=== PATIENT | male | born 2000 | race African-American/Black ===

== ENCOUNTER 2023-12-23 10:39 | Emergency (ER) | payer OTHER ==
[~2023-12-23] VITALS: Ht 188 cm; Wt 82.0 kg
[~2023-12-23 10:39] MED LIST: DOCU-138 MT; HYDR-4001 MT; LEVO750T68 MT
[2023-12-23 10:49] VITALS: TEMP 98; O2SAT 100
[2023-12-23 11:12] LABS: HEMATOCRIT. 46.1 % (42.0-52.0); HEMOGLOBIN. 15.2 g/dL (14.0-18.0); MEAN CORPUSCULAR HEMOGLOBIN 31.2 pg (28.0-32.0); MEAN CORPUSCULAR VOLUME 94.4 fL (80.0-94.0); MEAN PLATELET VOLUME 9.8 fl (7.4-10.4); PLATELET 188 x1000/uL (130-400); RED BLOOD CELL COUNT 4.88 mill/uL (4.7-6.1); RED CELL DISTRIBUTION WIDTH 13.2 % (11.6-14.6); WHITE BLOOD COUNT 6.1 x1000/uL (4.5-11.0)
[2023-12-23 11:14] LABS: CHLORIDE 103 mEq/L (98-107); DIFFERENTIAL COMMENT 1; SODIUM 137 mEq/L (136-145)
[2023-12-23 11:15] LABS: CARBON DIOXIDE 28 mEq/L (21-32)
[2023-12-23] MEDS: ONDANSETRON 4MG ODT PO ONE (11:15)
[2023-12-23] MEDS: KETOROLAC 30MG/ML VIAL IM ONE (11:15)
[2023-12-23 11:16] LABS: CALCIUM 9.3 mg/dL (8.7-10.4)
[2023-12-23 11:20] LABS: CREATININE 0.9 mg/dL (0.6-1.3); GLUCOSE 95 mg/dL (70-105)
[2023-12-23 11:21] LABS: UREA NITROGEN BLOOD 6 mg/dL (9-23)
[2023-12-23 11:44] LABS: HCG SCREEN NEGATIVE
[2023-12-23 12:08] LABS: ALANINE AMINOTRANSFERASE 14 IU/L (10-49); ALBUMIN 4.6 g/dL (3.2-4.8); ASPARTATE AMINOTRANSFERASE 20 IU/L (<34); BILIRUBIN DIRECT 0.2 mg/dL (<=3.0); BILIRUBIN TOTAL 0.8 mg/dL (0.1-1.0); PROTEIN TOTAL 7.5 g/dL (6.0-8.3)
[2023-12-23 12:20] VITALS: BP 144/84; PULSE 64; RESP 14; O2SAT 100
[2023-12-23 12:37] LABS: CLARITY URINE CLEAR (CLEAR); COLOR URINE YELLOW (YELLOW); GLUCOSE URINE NEGATIVE (NEGATIVE); KETONES URINE NEGATIVE (NEGATIVE); LEUKOCYTE ESTERASE URINE NEGATIVE (NEGATIVE); NITRITE URINE NEGATIVE (NEGATIVE); OCCULT BLOOD URINE NEGATIVE (NEGATIVE); PROTEIN URINE NEGATIVE (NEGATIVE); SPECIFIC GRAVITY URINE 1.017 (1.005-1.030); UROBILINOGEN URINE 0.2 E.U./dL (0.2-1.0)
[2023-12-23 16:38] LABS: PLATELET ESTIMATE NORMAL
== END 2023-12-23 14:37 | disposition home or self-care (01) ==
LOC: ER 10:39
DX: G89.18 Other acute postprocedural pain (principal); R10.84 Generalized abdominal pain; F12.10 Cannabis abuse, uncomplicated; I10 Essential (primary) hypertension; Z90.49 Acquired absence of other specified parts of digestive tract
CPT/HCPCS: 80076; 80048; 81003; 84703; 85025; 36415; 74176; 96372; 99285; Q0162; J1885

== ENCOUNTER 2024-03-26 23:57 | Emergency (ER) | payer OTHER ==
[~2024-03-26] VITALS: Ht 188 cm; Wt 82.0 kg
[2024-03-26 23:59] VITALS: O2SAT 100
[2024-03-27] MEDS: TETANUS, DIPHTHERIA, PERTUSSIS VAC/PF 0.5ML (>10YR OLD) IM ONE (01:16)
[2024-03-27] MEDS: BACITRACIN ZINC OINT UDPKT TOP ONE (01:16)
[2024-03-27] MEDS: LIDOCAINE HCL/PF 1% 10 MG/ML 5ML VIAL INFIL ONE (01:16)
[2024-03-27] MEDS ORDERED: AMOX1TAB16 MT (04:26)
[2024-03-27] MEDS ORDERED: HYDR-4001 MT (04:26)
[2024-03-27 08:27] VITALS: BP 122/71; PULSE 84; RESP 16; TEMP 36.94740; O2SAT 99
== END 2024-03-27 08:28 | disposition home or self-care (01) ==
LOC: ER 23:57
DX: S01.511A Laceration without foreign body of lip, initial encounter (principal); R51.9 Headache, unspecified; I10 Essential (primary) hypertension; Z90.49 Acquired absence of other specified parts of digestive tract; Y08.89XA Assault by other specified means, initial encounter; Y04.0XXA Assault by unarmed brawl or fight, initial encounter; Y92.89 Other specified places as the place of occurrence of the external cause; Y99.8 Other external cause status
CPT/HCPCS: 12014; 99285; 70486; 90715; 90471; J3490; Z7610

== ENCOUNTER 2024-07-27 19:34 | Emergency (ER) | payer OTHER ==
[~2024-07-27] VITALS: Ht 175.3 cm; Wt 75.0 kg
[~2024-07-27 19:34] MED LIST changes: +AMOX1TAB16 MT
[2024-07-27 19:49] VITALS: BP 104/63; PULSE 66; RESP 18; TEMP 36.6; O2SAT 99
== END 2024-07-28 01:27 | disposition left against medical advice (07) ==
LOC: ER 19:34
DX: R53.1 Weakness (principal); Z53.21 Procedure and treatment not carried out due to patient leaving prior to being seen by health care provider

== ENCOUNTER 2024-09-13 02:13 | Emergency (ER) | payer OTHER ==
[~2024-09-13] VITALS: Ht 182.9 cm; Wt 86.0 kg
[2024-09-13 02:15] VITALS: O2SAT 100
[2024-09-13 03:11] LABS: INR 1.1; PROTHROMBIN TIME 11.5 sec (9.6-11.0)
[2024-09-13 03:12] LABS: CHLORIDE 103 mEq/L (98-107); POTASSIUM 3.8 mEq/L (3.5-5.1); SODIUM 138 mEq/L (136-145)
[2024-09-13 03:13] LABS: CALCIUM 9.4 mg/dL (8.7-10.4); CARBON DIOXIDE 26 mEq/L (21-32)
[2024-09-13 03:18] LABS: CREATININE 0.9 mg/dL (0.6-1.3); GLUCOSE 98 mg/dL (70-105); UREA NITROGEN BLOOD 9 mg/dL (9-23)
[2024-09-13 03:19] LABS: ETHANOL BLOOD < 10 mg/dL (<10)
[2024-09-13 03:20] LABS: ALANINE AMINOTRANSFERASE 11 IU/L (10-49); ASPARTATE AMINOTRANSFERASE 15 IU/L (<34); BILIRUBIN DIRECT 0.2 mg/dL (<=3.0); BILIRUBIN TOTAL 0.6 mg/dL (0.1-1.0)
[2024-09-13 03:23] LABS: TROPONIN I HIGH SENSITIVITY < 4 ng/L (3.0-53)
[2024-09-13 03:28] LABS: BASOPHILS % 0.6 % (0.0-2.0); EOSINOPHILS % 1.7 % (0.0-5.0); HEMATOCRIT. 49.6 % (42.0-52.0); HEMOGLOBIN. 16.4 g/dL (14.0-18.0); LYMPHOCYTES % 24.7 % (20.0-50.0); MEAN CORPUSCULAR HEMOGLOBIN 30.4 pg (28.0-32.0); MEAN CORPUSCULAR HGB CONC 33.1 g/dL (31.0-37.0); MEAN CORPUSCULAR VOLUME 91.7 fL (80.0-94.0); MEAN PLATELET VOLUME 10.3 fl (7.4-10.4); MONOCYTES % 7.1 % (2.0-8.0); NEUTROPHILS % 65.9 % (40.0-76.0); PLATELET 171 x1000/uL (130-400); RED BLOOD CELL COUNT 5.41 mill/uL (4.7-6.1); RED CELL DISTRIBUTION WIDTH 13.5 % (11.6-14.6); WHITE BLOOD COUNT 5.6 x1000/uL (4.5-11.0)
[2024-09-13] MEDS: ONDANSETRON HCL 4MG/2ML INJ IV STA (03:38)
[2024-09-13] MEDS: KETOROLAC 30MG/ML VIAL IV STA (03:38)
[2024-09-13] MEDS: SODIUM CHLORIDE 0.9% 1,000 ML IV ONE (03:38)
[2024-09-13] MEDS ORDERED: IBUP-2029 MT (04:55)
[2024-09-13] MEDS ORDERED: ONDA4TAB50 MT (04:55)
[2024-09-13 05:14] VITALS: BP 120/75; PULSE 68; RESP 15; TEMP 36.4; O2SAT 99
== END 2024-09-13 05:32 | disposition home or self-care (01) ==
LOC: ER 02:13
DX: R10.30 Lower abdominal pain, unspecified (principal); F12.10 Cannabis abuse, uncomplicated; I10 Essential (primary) hypertension; Z00.00 Encounter for general adult medical examination without abnormal findings; Z79.899 Other long term (current) drug therapy; Z90.49 Acquired absence of other specified parts of digestive tract
CPT/HCPCS: 80076; 80048; 80320; 83690; 85025; 85610; 84484; 36415; 74176; 93005; 96361; 96374; 96375; 99285; J1885; J2405; J7030; Z7610 ×3; G0480

== ENCOUNTER 2025-02-18 06:23 | Emergency (ER) | payer OTHER ==
[~2025-02-18] VITALS: Ht 177.8 cm; Wt 73.0 kg
[~2025-02-18 06:23] MED LIST changes: +IBUP-1455 MT; +ONDA4TAB50 MT
[2025-02-18 06:26] VITALS: O2SAT 97
[2025-02-18 07:35] LABS: BASOPHILS % 0.5 % (0.0-2.0); EOSINOPHILS % 0.3 % (0.0-5.0); HEMATOCRIT. 46.4 % (42.0-52.0); HEMOGLOBIN. 15.4 g/dL (14.0-18.0); LYMPHOCYTES % 23.5 % (20.0-50.0); MEAN PLATELET VOLUME 8.3 fl (7.4-10.4); MONOCYTES % 13.8 % (2.0-8.0); NEUTROPHILS % 61.9 % (40.0-76.0); PLATELET 185 x1000/uL (130-400); RED BLOOD CELL COUNT 5.03 mill/uL (4.7-6.1); RED CELL DISTRIBUTION WIDTH 13.7 % (11.6-14.6)
[2025-02-18 07:56] LABS: CREATININE 0.9 mg/dL (0.6-1.3); UREA NITROGEN BLOOD 8 mg/dL (9-23)
[2025-02-18] MEDS: BACITRACIN ZINC OINT UDPKT TOP ONE (08:00)
[2025-02-18 10:25] LABS: *AMPHETAMINES SCREEN URINE PRESUMPTIVE POSITIVE (NEGATIVE); *BARBITURATES SCREEN URINE NEGATIVE (NEGATIVE); *BENZODIAZEPINES SCREEN URINE NEGATIVE (NEGATIVE); *COCAINE SCREEN URINE NEGATIVE (NEGATIVE); CANNABINOID URINE SCREEN PRESUMPTIVE POSITIVE (NEGATIVE); ECSTASY MDMA SCREEN URINE CONF.TEST INDICATED (NEGATIVE); METHADONE URINE SCREEN NEGATIVE (NEGATIVE); OPIATES URINE SCREEN NEGATIVE (NEGATIVE); PHENCYCLIDINE URINE SCREEN PRESUMTIVE POSITIVE (NEGATIVE)
[2025-02-18] MEDS: OLANZAPINE 10 MG/VIAL IM ONE (12:30)
[2025-02-18] MEDS: LORAZEPAM 2MG/ML UD SYRINGE IM NR (12:44)
[2025-02-18 20:40] VITALS: BP 121/72; PULSE 62; RESP 18; TEMP 36.8; O2SAT 100
[2025-02-18] MEDS ORDERED: TRAZODONE HCL 50MG TABLET PO SCH (21:00)
[2025-02-18] MEDS ORDERED: RISPERIDONE 0.5MG TABLET PO SCH (21:00)
== END 2025-02-18 20:45 ==
LOC: ER 06:43
DX: R45.851 Suicidal ideations (principal); F19.10 Other psychoactive substance abuse, uncomplicated; F20.9 Schizophrenia, unspecified; F31.9 Bipolar disorder, unspecified; I10 Essential (primary) hypertension; Z59.00 Homelessness unspecified; Z90.49 Acquired absence of other specified parts of digestive tract; Z20.822 Contact with and (suspected) exposure to COVID-19; Z79.899 Other long term (current) drug therapy
CPT/HCPCS: 80305; 80048; 80320; 85025; 36415; 93005; 96372; 99285; 87426; J3490; J2060; G0480

== ENCOUNTER 2025-03-23 08:13 | Emergency (ER) | payer OTHER ==
[~2025-03-23] VITALS: Ht 185.4 cm; Wt 82.0 kg
[2025-03-23 08:21] VITALS: BP 157/94; PULSE 75; RESP 18; TEMP 36.9; O2SAT 95; O2SAT 98
[2025-03-23] MEDS ORDERED: NAPR-1176 MT (08:46)
[2025-03-23] MEDS: NAPROXEN 250MG TABLET PO ONE (09:07)
== END 2025-03-23 09:07 | disposition home or self-care (01) ==
LOC: ER 08:13
DX: R20.2 Paresthesia of skin (principal); R20.0 Anesthesia of skin; M25.562 Pain in left knee; F15.90 Other stimulant use, unspecified, uncomplicated; F12.90 Cannabis use, unspecified, uncomplicated; I10 Essential (primary) hypertension; Z79.899 Other long term (current) drug therapy; Z90.49 Acquired absence of other specified parts of digestive tract; Z79.1 Long term (current) use of non-steroidal anti-inflammatories (NSAID)
CPT/HCPCS: 99283